=== PATIENT | male | born 1945 | race Two or more races ===

== ENCOUNTER 2022-12-03 19:10 | Emergency (ER) | payer OTHER ==
[~2022-12-03] VITALS: Ht 190.5 cm; Wt 113.6 kg
[2022-12-03 19:18] VITALS: BP 155/83; RESP 18; O2SAT 96
[2022-12-03 19:43] LABS: Basophils # (auto) 0.1 10 ^3/uL (0-0.2); Eosinophils # (auto) 0.2 10 ^3/uL (0-0.8); Eosinophils % (auto) 1.6 % (0.0-7.0); Hematocrit 44.3 % (41.0-53.0); Lymphocytes # (auto) 1.6 10 ^3/uL (0.4-5.4); Lymphocytes % (auto) 16.5 % (10.0-50.0); Mean Corpuscular Hemoglobin 33.7 pg (28.0-32.0); Mean Corpuscular Volume 99.2 fL (80.0-100.0); Monocytes # (auto) 0.9 10 ^3/uL (0-1.3); Monocytes % (auto) 9.1 % (0.0-12.0); Neutrophils % (auto) 71.8 % (37.0-80.0); Nucleated Red Blood Cells % 0.3 %; Red Blood Cells 4.46 10^6/uL (4.5-5.90); Red Cell Distribution Width 13.3 % (11.8-14.3); White Blood Cell 9.7 10^3/uL (4.4-10.8)
[2022-12-03 19:58] LABS: Alanine Aminotransferase 57 U/L (7-40); Alkaline Phosphatase 91 U/L (46-116); Anion Gap 5 (5-15); Aspartate Aminotransferase 35 U/L (13-40); BUN/Creatinine Ratio 5.3 (10.0-20.0); Blood Urea Nitrogen 7 mg/dL (9-23); Calcium 8.6 mg/dL (8.7-10.4); Carbon Dioxide 25 mmol/L (20-30); Chloride 106 mmol/L (98-107); Glucose 133 mg/dL (74-106); Magnesium 1.9 mg/dL (1.6-2.6); Potassium 3.8 mmol/L (3.5-5.1); Sodium 136 mmol/L (136-145)
[2022-12-03 19:59] LABS: Bilirubin, Total 0.8 mg/dL (0.2-1.0); Total Protein 9.2 g/dL (5.7-8.2)
[2022-12-03 20:23] VITALS: PULSE 57
== END 2022-12-03 22:08 | disposition left against medical advice (07) ==
LOC: ER 19:16
DX: R07.89 Other chest pain (principal); Z53.21 Procedure and treatment not carried out due to patient leaving prior to being seen by health care provider
CPT/HCPCS: 36415; 71045; 80053; 83735; 83880; 84484; 85025; 93005

== ENCOUNTER 2023-02-02 20:10 | Emergency (ER) | payer OTHER ==
[~2023-02-02] VITALS: Ht 190.5 cm; Wt 127.3 kg
[2023-02-02 21:34] LABS: Hematocrit 43.2 % (41.0-53.0); Hemoglobin 14.6 g/dL (13.5-17.5); Mean Corpuscular Hemoglobin 33.3 pg (28.0-32.0); Mean Corpuscular Hgb Conc. 33.7 g/dL (32.0-36.0); Red Blood Cells 4.37 10^6/uL (4.5-5.90); Red Cell Distribution Width 12.9 % (11.8-14.3)
[2023-02-02] MEDS ORDERED: IOHEXOL 350 MG/ML 100ML IJ ONE (21:40)
[2023-02-02 21:44] LABS: INR 1.19 (0.9-1.15); Partial Thromboplastin Time 29.6 SEC (24.5-34.5); Prothrombin Time 12.4 sec (9.3-11.8)
[2023-02-02 21:53] LABS: Basophils % (manual) 0 (0.0-2.0); Blast Cells 0; Eosinophils % (manual) 0 (0-7); Metamyelocytes % 0; Myelocytes % 0; Promyelocytes % 0; Reactive Lymphocytes 0
[2023-02-02 21:54] LABS: Alanine Aminotransferase 55 U/L (7-40); Albumin 3.9 g/dL (3.2-4.8); Alkaline Phosphatase 90 U/L (46-116); Anion Gap 7 (5-15); Aspartate Aminotransferase 128 U/L (13-40); BUN/Creatinine Ratio 8.1 (10.0-20.0); Blood Urea Nitrogen 10 mg/dL (9-23); Calcium 8.2 mg/dL (8.7-10.4); Carbon Dioxide 24 mmol/L (20-30); Chloride 102 mmol/L (98-107); Glucose 135 mg/dL (74-106); Potassium 3.9 mmol/L (3.5-5.1); Sodium 133 mmol/L (136-145)
[2023-02-02 21:55] LABS: Bilirubin, Total 0.9 mg/dL (0.2-1.0); Total Protein 8.8 g/dL (5.7-8.2)
[2023-02-02 22:09] LABS: Lactic Acid w/Reflex 2.4 mmol/L (0.4-2.0)
[2023-02-02 22:34] LABS: Band Neutrophils % (manual) 5; Lymphocytes % (manual) 6 (10.0-50.0)
[2023-02-02 22:35] LABS: Large Platelets FEW; Platelet Estimate Adequate
[2023-02-02 22:40] LABS: Monocytes % (manual) 15 (0-12)
[2023-02-03] MEDS ORDERED: VANCOMYCIN PER PHARMACY 0 MG IV SCH (06:00)
[2023-02-03] MEDS ORDERED: cefTRIAXone 1GM/50ML D5W 50 ML IV ONE (06:00)
[2023-02-03] MEDS ORDERED: VANCOMYCIN 1GM/250ML 250 ML IV SCH (06:30)
[2023-02-03 10:54] VITALS: PULSE 78; RESP 14; O2SAT 98
[2023-02-03 12:56] VITALS: BP 144/75; PULSE 85; RESP 20; TEMP 98.2; O2SAT 95
== END 2023-02-03 13:03 | disposition short-term general hospital (02) ==
LOC: EDBD 20:10 → ER 20:10
DX: A41.9 Sepsis, unspecified organism (principal); R79.89 Other specified abnormal findings of blood chemistry; R42 Dizziness and giddiness; I10 Essential (primary) hypertension; E11.9 Type 2 diabetes mellitus without complications
CPT/HCPCS: 36415; 70450; 70496; 71045; 80053; 83605; 83735; 83880; 84484; 85007; 85027; 85379; 85610; 85730; 87040; 93005; 96365; 96368; 99285; J0696; J3370; Q9967

== ENCOUNTER 2024-10-14 10:02 | Emergency (ER) | payer OTHER ==
[~2024-10-14] VITALS: Ht 190.5 cm; Wt 107.8 kg
[2024-10-14 10:28] VITALS: PULSE 87; RESP 18; O2SAT 98
[2024-10-14 11:05] VITALS: PULSE 58; RESP 16; O2SAT 96
--- NOTE | 2024-10-14 11:10 | ED.PDOC ---
History of Present Illness HPI Comments 79-year-old male with a history of AFib status post ablation, hypertension and diabetes brought in by private car stating I have been feeling sick for the last 4 days. patient states he has been feeling generally weak, short of breath, had a pressure-like headache and decreased appetite. He states he had c hest pain 2 days ago which prompted him to go to urgent care. EKG and labs done there were unremarkable, so he was discharged home and advised to go to the ER for persistent or worsening symptoms. He states his symptoms did not improve, and over the past 4 days he has had diarrhea, nausea and urinary frequency. He denies fever, cough, current chest pain, abdominal pain, dysuria or hematuria Chief Complaint: General Weakness Time Seen by MD: 10:08 Allergies: Coded Allergies: Nitroglycerin (Verified Allergy, Unknown, 12/03/22) Mode of Arrival: Ambulatory Past Medical History PAST MEDICAL HISTORY: AFIB, DM, HTN, Kidney Stones Surgical History (Other): Cardiac ablation, lithotripsy Family History Family History: Reviewed,noncontributory to illness Social History Smoker: Non-Smoker Alcohol: Rarely Drugs: Denies Drug Use Lives In: Home All Other Systems: Reviewed and Negative (Comprehensive systems review obtained and negative except for what is stated in the HPI.) Physical Exam General Appearance: No Apparent Distress, Obese HEENT: Other (Pupils and face symmetric. Moist mucous membranes.) Neck: Full Range of Motion, Normal Inspection Respiratory: Decreased Breath Sounds, No Accessory Muscle Use, No Respiratory Distress Cardiovascular: Irregular, No Edema, No JVD, Tachycardia Breast Exam: Deferred Gastrointestinal: Non Tender, Soft Genitalia: Deferred Pelvic: Deferred Rectal: Deferred Extremities: Normal inspection, Normal range of motion, Non-tender, No pedal edema Neurologic: Alert (Oriented x4), Normal Affect, Normal Mood, Other (Ambulatory. No gross focal deficit.) Cerebellar Function: NOT DONE Reflexes: NOT DONE Skin: Dry, Normal Color, Warm Lymphatic: NOT DONE Was a procedure done? Was a procedure done?: No EKG EKG : Comments AFib with RVR, rate 111, normal QRS interval, QTC prolonged at 564, normal axis, possible right ventricular conduction delay, nonspecific T change Differential Dx Considerations may include: AFib, mi, viral syndrome, dehydration/hypovolemia, electrolyte imbalance, pneumonia, CHF, UTI, sepsis, among others X-Ray, Labs, Meds, VS Vital Signs Date Time Temp Pulse Resp B/P (MAP) Pulse Ox O2 Delivery O2 Flow Rate FiO2 10/14/24 12:00 98.3 59 16 130/63 (85) 94 98.3 10/14/24 11:05 58 16 96 Room Air* 0 21 10/14/24 11:05 97.8 58 16 134/50 (78) 96 97.8 10/14/24 10:28 87 18 98 Room Air* 0 21 10/14/24 10:15 111 10/14/24 10:04 97.7 63 16 156/83 96 97.7 Lab Test 10/14/24 13:00 10/14/24 12:40 10/14/24 11:15 10/14/24 10:28 Range/Units Troponin I High Sensitivity 32 38 </=54 ng/L Influenza Type A Antigen Negative Negative Influenza Type B Antigen Negative Negative SARS-CoV-2 Antigen (Rapid) Negative NEGATIVE White Blood Count 8.1 4.4-10.8 10^3/uL Red Blood Count 4.49 L 4.5-5.90 10^6/uL Hemoglobin 15.8 13.5-17.5 g/dL Hematocrit 44.7 41.0-53.0 % Mean Corpuscular Volume 99.4 80.0-100.0 fL Mean Corpuscular Hemoglobin 35.1 H 28.0-32.0 pg Mean Corpuscular Hemoglobin Concent 35.3 32.0-36.0 g/dL Red Cell Distribution Width 12.8 11.8-14.3 % Platelet Count 260 140-450 10^3/uL Mean Platelet Volume 7.8 6.9-10.8 fL Neutrophils (%) (Auto) 72.3 37.0-80.0 % Lymphocytes (%) (Auto) 17.4 10.0-50.0 % Monocytes (%) (Auto) 8.4 0.0-12.0 % Eosinophils (%) (Auto) 1.1 0.0-7.0 % Basophils (%) (Auto) 0.8 0.0-2.0 % Neutrophils # (Auto) 5.8 1.6-8.6 10 ^3/uL Lymphocytes # (Auto) 1.4 0.4-5.4 10 ^3/uL Monocytes # (Auto) 0.7 0-1.3 10 ^3/uL Eosinophils # (Auto) 0.1 0-0.8 10 ^3/uL Basophils # (Auto) 0.1 0-0.2 10 ^3/uL Nucleated Red Blood Cells 0.0 % Sodium Level 136 136-145 mmol/L Potassium Level 3.8 3.5-5.1 mmol/L Chloride Level 101 98-107 mmol/L Carbon Dioxide Level 27 20-31 mmol/L Anion Gap 8 5-15 Blood Urea Nitrogen 10 9-23 mg/dL Creatinine 1.21 0.700-1.30 mg/dL Glomerular Filtration Rate Calc 61 >90 mL/min BUN/Creatinine Ratio 8.3 L 10.0-20.0 Serum Glucose 153 H 74-106 mg/dL Lactic Acid Level 1.5 0.4-2.0 mmol/L Calcium Level 8.7 8.7-10.4 mg/dL Total Bilirubin 1.2 H 0.2-1.0 mg/dL Aspartate Amino Transferase (AST) 23 13-40 U/L Alanine Aminotransferase (ALT) 32 7-40 U/L Alkaline Phosphatase 95 46-116 U/L B-Type Natriuretic Peptide 77.46 0-100 pg/mL Total Protein 9.2 H 5.7-8.2 g/dL Albumin 4.3 3.2-4.8 g/dL Urine Color Yellow Yellow Urine Clarity Clear Clear Urine pH 6.5 5.0-9.0 Urine Specific [place] 1.013 1.001-1.035 Urine Protein Negative Negative Urine Ketones Trace Negative Urine Blood Negative Negative /uL Urine Nitrite Negative Negative Urine Bilirubin Negative Negative Urine Urobilinogen Normal Negative mg/dL Urine Leukocyte Esterase Negative Negative /uL Urine RBC <1 0 - 3 /hpf Urine Microscopic WBC 1 0-3 /HPF Urine Squamous Epithelial Cells None seen <5 /hpf Urine Bacteria None seen None Seen /hpf Urine Glucose Normal Normal mg/dL Current Medications Medications (Trade) Dose Ordered Sig/Juan Route Start Time Stop Time Status Last Admin Ondansetron HCl (Zofran) 4 mg ONCE ONCE IV 10/14/24 10:30 10/14/24 10:31 DC 10/14/24 11:13 Acetaminophen (Tylenol Tablet Or Capsule) 1,000 mg ONCE ONCE PO 10/14/24 10:30 10/14/24 10:31 DC 10/14/24 11:14 PROCEDURE(s): CXRP - CHEST PORTABLE REASON: sob ORDER NUMBER(s): [id number], ACCESSION NUMBER(s): [id number] EXAM: XY CHEST PORTABLE Indication: sob Technique: Single frontal view of the chest was obtained Comparison: XY CHEST XRAY 1 VIEW on DOS: 02/02/23, XY CHEST PORTABLE on DOS: 12/03/22 FINDINGS: Lines and Tubes: None Lungs: Mild pulmonary vascular congestion. Pleura: No effusion. No pneumothorax. Cardiomediastinal contours: Unremarkable Bones: No acute osseous abnormality. IMPRESSION: Mild pulmonary vascular congestion. X-Ray, Labs, Meds, VS Comment 79-year-old male with a history of AFib status post ablation, hypertension and diabetes presenting with generalized weakness Vitals remarkable for BP 156/83, heart rate 111 Exam remarkable for irregularly irregular tachycardic rhythm Rhythm strip independently interpreted by me: AFib RVR, rate 111, no PVCs Chest x-ray IMPRESSION: Mild pulmonary vascular congestion. CBC unremarkable, CMP unremarkable, BNP, troponin negative, UA case ketones, lactate normal Patient treated with the following in the ED: Zofran ODT 4 mg p.o., Tylenol 1 g p.o. While on the monitor, patient was noted to have episodes of rapid AFib lasting 1-2 minutes that would resolve, associated with intermittent short (1-2 second) asystolic pauses. Plan is to admit/transfer the patient for Cardiology evaluation. Case discussed with Dr. Belcher at [facility], who will arrange for the patient to be transferred. Authorization [id number] Time of 1ST Reevaluation: 11:10 Reevaluation 1ST: Unchanged Patient Education/Counseling: Diagnosis, Treatment, Need For Follow Up Family Education/Counseling: No Family Present SEPSIS Sepsis Screen Date sepsis recognized/suspect: Oct 14, 2024 Time Sepsis recognized/suspect: 1007 Recent Procedure: No On Antibiotic Therapy: No Respiratory Rate >20: No Heart Rate >90: No Temp<36 C (96.8 F) or >38.3 C: No SBP <90 or MAP <65 mmHG: No New Acute Mental Status Change: No Is the patient on CPAP, BIPAP,: No Physician Orders Electrocardigram (10/14/24 10:04) Chest Portable (10/14/24 10:20) Blood Culture (10/14/24 10:20) Troponin-I Hs (10/14/24 13:20) Vital Signs Date Time Temp Pulse Resp B/P (MAP) Pulse Ox O2 Delivery O2 Flow Rate FiO2 10/14/24 12:00 98.3 59 16 130/63 (85) 94 98.3 10/14/24 11:05 58 16 96 Room Air* 0 21 10/14/24 11:05 97.8 58 16 134/50 (78) 96 97.8 10/14/24 10:28 87 18 98 Room Air* 0 21 10/14/24 10:15 111 10/14/24 10:04 97.7 63 16 156/83 96 97.7 Laboratory Tests Test 10/14/24 11:15 Lactic Acid Level 1.5 mmol/L (0.4-2.0) White Blood Count 8.1 10^3/uL (4.4-10.8) Medications Medications Dose Ordered Sig/Juan Route Start Time Stop Time Status Last Admin Dose Admin Acetaminophen 1,000 mg ONCE ONCE PO 10/14/24 10:30 10/14/24 10:31 DC 10/14/24 11:14 Ondansetron HCl 4 mg ONCE ONCE IV 10/14/24 10:30 10/14/24 10:31 DC 10/14/24 11:13 Departure 1 Departure Time of Disposition: 12:12 Impression: Primary Impression: Atrial fibrillation with RVR Additional Impression: CHF (congestive heart failure) Qualified Codes: I50.9 - Heart failure, unspecified Disposition: 02 SHORT TERM HOSPITAL Admit to: Tele Condition: Guarded Critical Care Note Critical Care Time?: Yes (45 min-critical care time only) Critical care comment: Critical care time including multiple bedside re-evaluations, review of lab and imaging studies, and discussion of the case with the consulting provider. Patient is high risk for hemodynamic and/or respiratory decompensation. Stability Stability form required: No Heart Score Heart Score: Heart Score Response (Comments) Value History N/A 0 EKG N/A 0 Age N/A 0 Risk Factors N/A 0 Troponin N/A 0 Total 0 WILD ESTRADA MD Oct 14, 2024 11:10
[2024-10-14 11:13] LABS: Urine Protein, UAD Negative (Negative)
[2024-10-14] MEDS: ONDANSETRON HCL 4 MG/2 ML VIAL IV ONE (11:13)
--- NOTE | 2024-10-14 11:13 | DVH ---
EXAM: XY CHEST PORTABLE Indication: sob Technique: Single frontal view of the chest was obtained Comparison: XY CHEST XRAY 1 VIEW on DOS: 02/02/23, XY CHEST PORTABLE on DOS: 12/03/22 FINDINGS: Lines and Tubes: None Lungs: Mild pulmonary vascular congestion. Pleura: No effusion. No pneumothorax. Cardiomediastinal contours: Unremarkable Bones: No acute osseous abnormality. IMPRESSION: Mild pulmonary vascular congestion.
[2024-10-14] MEDS: ACETAMINOPHEN 500 MG TAB or CAP PO ONE (11:14)
[2024-10-14 11:47] LABS: Hematocrit 44.7 % (41.0-53.0); Hemoglobin 15.8 g/dL (13.5-17.5); Mean Corpuscular Hemoglobin 35.1 pg (28.0-32.0); Mean Corpuscular Volume 99.4 fL (80.0-100.0); Nucleated Red Blood Cells % 0.0 %
[2024-10-14 12:00] LABS: Alanine Aminotransferase 32 U/L (7-40); Albumin 4.3 g/dL (3.2-4.8); Alkaline Phosphatase 95 U/L (46-116); Anion Gap 8 (5-15); BUN/Creatinine Ratio 8.3 (10.0-20.0); Bilirubin, Total 1.2 mg/dL (0.2-1.0); Blood Urea Nitrogen 10 mg/dL (9-23); Calcium 8.7 mg/dL (8.7-10.4); Carbon Dioxide 27 mmol/L (20-31); Chloride 101 mmol/L (98-107); Glucose 153 mg/dL (74-106); Potassium 3.8 mmol/L (3.5-5.1); Sodium 136 mmol/L (136-145); Total Protein 9.2 g/dL (5.7-8.2)
[2024-10-14 13:41] LABS: COVID19 ANTIGEN SOFIA FIA NEGATIVE (NEGATIVE)
[2024-10-14 17:15] VITALS: BP 148/71; PULSE 58; RESP 16; TEMP 98.2; O2SAT 95
--- NOTE | 2024-10-15 04:03 | ECG ---
[facility] Test Date: 2024-10-14 Test Time: 10:15:55 Pat Name: BELLA PORRAS Department: Room: Gender: M Intensive Care Specialist: DR IVEY: 1945 Requested By: BEVERLEY JOHNSON Order Number: [id number] Reading MD: Chalo Marcial Measurements Intervals [place] Rate: 111 P: 0 IA: 0 QRS: 25 QRSD: 91 T: 24 QT: 415 QTc: 564 Interpretive Statements Atrial fibrillation RSR' in V1 or V2, right VCD or RVH Prolonged QT interval Electronically Signed On 10-17-2024 22:48:45 PDT by Chalo Marcial Please click the below link to view image of tracing.
== END 2024-10-14 17:26 | disposition short-term general hospital (02) ==
LOC: ER 10:02
DX: I48.20 Chronic atrial fibrillation, unspecified (principal); I11.0 Hypertensive heart disease with heart failure; I50.9 Heart failure, unspecified; E11.9 Type 2 diabetes mellitus without complications; F10.90 Alcohol use, unspecified, uncomplicated; Z87.440 Personal history of urinary (tract) infections; Z98.890 Other specified postprocedural states; Z20.822 Contact with and (suspected) exposure to COVID-19; Y90.9 Presence of alcohol in blood, level not specified
CPT/HCPCS: 36415; 71045; 80053; 81001; 83605; 83880; 84484; 85025; 87040; 87426; 87804; 93005; 96374; 99291; J2405